=== PATIENT | female | born 1990 | race Hispanic/Latino ===

== ENCOUNTER 2019-04-10 05:51 | Day surgery (SDC) | payer BC ==
--- NOTE | 2019-04-09 12:39 | History and Physical Report ---
History of Present Illness Date of examination: 04/08/19 History of present illness: Patient has been reassessed/reevaluated. H&P has been reviewed. No interval changes. This patient desires to discuss control methods and possibly start, continue, or change control. The patient denies blood clots, smoking, history of stroke, undiagnosed vaginal bleeding, liver disease, 1st degree relative with blood clots/stroke, heart disease, high blood pressure and cancer. The method she is currently using is Paragard IUD. Patient desires sterilization. Discussed with various methods of contraceptives including abstinence, barrier and hormonal. Discussed oral, implantable, dermal, injectable,intravaginal and intrauterine methods. Patient declined temporary contraceptives. Discuss the permanency of sterilization. High risk of regret and 0.5 to 1% risk of failure. Questions answered Patient understands and desires to proceed. Vital Signs: Patient Profile: 28 Years Old Female LMP: 04/04/2019 Height: 65 inches Weight: 201 pounds BMI: 33.44 Menstrual History: LMP (date): 04/04/2019 Past History : 0 Term Births: 0 Premature Births: 0 Living Children: 0 Para: 0 Mult. Births: 0 Prev : 0 Aborta: 0 Elect. Ab: 0 Spont. 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 of genital herpes: no Hx of STD: None Current Allergies (reviewed today): No known allergies Past Medical History: Attention Deficit Disorder Depression Past Surgical History: left shoulder(11/2018) Family History Summary: Other family member - Has Family History of Skin Cancer - Entered On: 02/06/2019 Other family member - Has No Family History of Breast Cancer - Entered On: 02/06/2019 Other family member - Has No Family History of Colon Cancer - Entered On: 02/06/2019 Other family member - Has No Family History of Ovarvian Cancer - Entered On: 02/06/2019 Social History: Marital Status: Children: 0 Occupation: Law Student [employer] Smoking History: Patient has never smoked. Risk Factors: Smoked Tobacco Use: Never smoker Smokeless Tobacco Use: Never Passive smoke exposure: no Drug use: no HIV high-risk behavior: no Caffeine use: 0 drinks per day Alcohol use: yes Type: social Exercise: yes Times per week: 3 Seatbelt use: 100 % Review of Systems General Denies fever, chills, sweats, anorexia, fatigue, weakness, malaise, weight loss and sleep disorder. Denies vaginal discharge, incontinence, dysuria, hematuria, urinary frequency, amenorrhea, menorrhagia, abnormal vaginal bleeding, pelvic pain, genital sores, decreased libido, painful periods, painful sex, urinary urgency, hot flashes, vaginal dryness, vaginal itching and vaginal odor. CV Denies chest pains, palpitations, syncope, dyspnea on exertion, orthopnea, PND and peripheral edema. Resp Denies cough, dyspnea at rest, excessive sputum, hemoptysis, wheezing and pleurisy. GI Denies nausea, vomiting, diarrhea, constipation, change in bowel habits, abdominal pain, melena, hematochezia, jaundice, gas/bloating, indigestion/heartburn, dysphagia and odynophagia. Breast Denies left breast lump, right breast lump, nipple discharge, bloody discharge from nipple, breast pain, abnormal mammogram and breast enlargement. Psych Denies depression, anxiety, irritability and mood swings. Past History Past Medical History: other (SEE HPI) Past Surgical History: Other (SEE HPI) Social history: , full code (SEE HPI) Family history: other (SEE HPI) Medications and Allergies Allergies Allergy/AdvReac Type Severity Reaction Status Date / Time No Known Allergies Allergy Unverified 04/03/19 12:26 Home Medications Medication Instructions Recorded Confirmed Last Taken Type Albuterol INH(or & Nicu Only) inhalation INHALATION PRN 04/03/19 Unknown History Bupropion Xl 450 mg PO DAILY 04/03/19 04/03/19 Unknown History Dextroamphetamine/Amphetamine 600 mg PO DAILY 04/03/19 04/03/19 Unknown History [Dextroamp-Amphetamin 10 mg Tab] Meloxicam 15 mg PO DAILY 04/03/19 04/03/19 Unknown History Active Meds: Active Medications Celecoxib (Celebrex) 200 mg PO PREOP NR Stop: 04/10/19 16:00 Gabapentin (Gabapentin) 300 mg PO PREOP NR Stop: 04/10/19 16:00 Lactated Ringer's (Lactated Ringers) 1,000 mls @ 100 mls/hr IV DIRECT SEGUNDO Midazolam HCl (Versed) 2 mg IV PREOP NR Stop: 04/10/19 23:00 Scopolamine (Transderm-Scop) 1 each TD PREOP NR Stop: 04/10/19 23:00 Review of Systems Constitutional: other (SEE HPI) Exam - Physical Exam Narrative exam: HEENT: normocephalic, no lesions or deformities Skin no significant abnormal lesions or rashes Chest: respiratory effort normal, clear to auscultation CV: regular, normal S1-S2, no murmur, no rub, no gallop Abdomen: normal bowel sounds, soft, nontender, no HSM Neuro: no gross anomalities Extremities: no clubbing, cyanosis, or edema 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 High risk of regret and 0.5 to 1% risk of failure. Discussed the different risk of abdominal versus vaginal approaches. Information given Discussed options of tubal blockage and salpingectomy and it's possible benefit of preventing ovarian cancer and increased risks of bleeding during the procedure. Discuss the risks of the surgery including infection, bleeding possibly heavy enough to require a blood transfusion, possilble damage to bowel, bladder or ureter. Patient understands and desires to proceed with tubal blockage due insurance coverage (2) Attention deficit disorder of adult Current Visit: No Status: Chronic (3) Depression Current Visit: No Status: Chronic Qualifiers: Depression Type: unspecified Qualified Code(s): F32.9 - Major depressive disorder, single episode, unspecified
[2019-04-10] MEDS ORDERED: GABAPENTIN 300 MG CAP PO NR (06:00)
[2019-04-10] MEDS ORDERED: SCOPOLAMINE TRANSDERMAL PATCH 72 HR TD NR (06:00)
[2019-04-10] MEDS ORDERED: CELECOXIB 200 MG CAP PO NR (06:00)
[2019-04-10] MEDS ORDERED: LACTATED RINGERS 1,000 ML IV SCH (06:00)
[2019-04-10] MEDS ORDERED: MIDAZOLAM 2 MG/2 ML INJ IV NR (06:00)
[2019-04-10] MEDS ORDERED: BACTERIOSTATIC SODIUM CHLORIDE 0.9% 30 ML VIAL INFILTRATI ONE (06:38)
[2019-04-10] MEDS ORDERED: BUPIVACAINE/PF (0.5%) 5 MG/1 ML 30 ML VIAL INFILTRATI ONE ×2 (06:49→08:28)
--- NOTE | 2019-04-10 07:24 | Anesthesia Consultation ---
Anesthesia Consult and Med Hx Date of service: 04/10/19 - Airway Anesthetic Teeth Evaluation: Good ROM Head & Neck: Adequate Mental/Hyoid Distance: Adequate Mallampati Class: Class II Intubation Access Assessment: Probably Good - Pre-Operative Health Status ASA Pre-Surgery Classification: ASA2 Proposed Anesthetic Plan: General - Pulmonary Hx Smoking: No Hx Asthma: Yes (EXERCISE INDUCED ONLY) Hx Sleep Apnea: No - Cardiovascular System Hx Hypertension: No - Central Nervous System Hx Back Pain: Yes (IN PAST) Hx Psychiatric Problems: Yes (depression) - Endocrine Hx Hypothyroidism: No - Hematic Hx Anemia: No - Other Systems Hx Alcohol Use: Yes (OCC . WINE OCC. VODKA) Hx Substance Use: No Hx Cancer: No
--- NOTE | 2019-04-10 07:25 | Anesthesia Day of Surgery ---
Anesthesia Day of Surgery - Day of Surgery Patient Examined: Yes Patient H&P Reviewed: Yes Patient is NPO: Yes
[2019-04-10] MEDS ORDERED: HYDROmorphone 1 MG/1 ML INJ IV PRN (07:39)
[2019-04-10] MEDS ORDERED: LIDOCAINE MPF (2%) 20 MG/1 ML VIAL 5 ML ONE (07:41)
[2019-04-10] MEDS ORDERED: dexAMETHasone 20 MG/5 ML VIAL ONE (07:41)
[2019-04-10] MEDS ORDERED: GLYCOPYRROLATE 0.4 MG/2 ML INJ ONE (07:41)
[2019-04-10] MEDS ORDERED: NEOSTIGMINE 10MG/10 ML INJ MDV ONE (07:41)
[2019-04-10] MEDS ORDERED: ROCURONIUM 50 MG/5 ML INJ IV ONE (07:41)
[2019-04-10] MEDS ORDERED: SUCCINYLCHOLINE CHLORIDE 200 MG/10 ML INJ MDV ONE (07:41)
[2019-04-10] MEDS ORDERED: PHENYLEPHRINE/NS 1,000 MCG/10 ML SYRINGE (OR USE) IV ONE (07:41)
[2019-04-10] MEDS ORDERED: ONDANSETRON 4 MG/2 ML INJ ONE (07:41)
[2019-04-10] MEDS ORDERED: PROPOFOL 200 MG/20 ML VIAL IV ONE (07:42)
[2019-04-10] MEDS ORDERED: fentaNYL 100 MCG/2 ML INJ ONE ×2 (07:42→08:47)
[2019-04-10] MEDS ORDERED: SODIUM CHLORIDE 0.9% IRR 1,500 ML BOTTLE IR ONE (08:28)
--- NOTE | 2019-04-10 08:58 | Operative Report ---
Operative Report Operative Report: Pre-operative diagnosis: Patient desires permanent sterilization Post-operative diagnosis: Same plus endometriosis Procedure name(s): Laparoscopic bilateral tubal ligation with Falope-Rings with ablation of endometriosis and removal of IUD Surgeon: Alejandro Hammonds MD Business Development Associate: [] Anesthesia: General endotracheal EBL: Minimal Complications: None Findings: Patient with uterus approximately 8 weeks in size with normal fallopian tubes bilaterally. Patient had area of endometriosis noted posterior bilaterally at the uterosacral ligament. Patient also had adhesion with window the left uterosacral ligament. Specimen(s): None Patient was brought in the operating room. General anesthesia was induced without difficulty. She was placed in dorsal lithotomy position. Prepped and draped in usual sterile manner. Her urinary bladder with was emptied with a red rubber catheter. Speculum placed in her vagina. IUD string were grasped with an Allis clamp and easily removed theough cervical os. Monitoring Divisions uterine manipulator was placed for uterine manipulation. Attention was then switched to the patient's abdomen. An infra-umbilical incision was made with a scalpel. This incision was spread with a hemostat. A 5 mm trocar was placed in this incision while lifting high the abdominal wall. Intra-abdominal presence was verified directly with the laparoscope. The patient was then insufflated to approximately 3 L of CO2 gas. The patient's findings as noted above. An accessory puncture was made suprapubically. The 8 mm trocar was placed through this incision under direct visualization with no evidence of internal organ damage. Each of the fallopian tube were identified by its fimbriated end. A portion approximately 1-2 cm from each cornua was grasped with the Falope ring applicator. Falope-Rings were placed without any difficulty bilaterally. Was a laceration of the left fallopian tube with first attempt placement Falope ring that was cauterized. The Falope ring was in place the distalm of the left tube. There was endometriosis were cauterized with good hemostasis. At this time all instruments were removed. The patient was deinsufflated. The skin incisions were closed subcuticular with 4-0 Vicryl. Marcaine was given subcuticularly for postoperative pain relief. The patient tolerated procedure well. She was awakened in the operating room and accompanied to the recovery room in good condition.
--- NOTE | 2019-04-10 09:01 | Short Stay Summary ---
Short Stay Documentation Date of service: 04/10/19 - History Past Medical History: other (SEE HPI) Past Surgical History: Other (SEE HPI) Social history: , full code (SEE HPI) - Allergies and Medications Current Medications: Allergies No Known Allergies Allergy (Unverified 04/03/19 12:26) Home Medications Medication Instructions Recorded Confirmed Last Taken Type Albuterol INH(or & Nicu Only) 1 puff INHALATION PRN 04/03/19 04/10/19 04/09/19 History Bupropion Xl 450 mg PO DAILY 04/03/19 04/03/19 04/09/19 History Dextroamphetamine/Amphetamine 600 mg PO DAILY 04/03/19 04/03/19 04/09/19 History [Dextroamp-Amphetamin 10 mg Tab] Meloxicam 15 mg PO DAILY 04/03/19 04/03/19 04/09/19 History oxyCODONE /ACETAMINOPHEN [Percocet 1 - 2 tab PO Q4H PRN #20 tablet 04/10/19 Unknown Rx 5/325 mg] Active Medications Celecoxib (Celebrex) 200 mg PO PREOP NR Stop: 04/10/19 16:00 Last Admin: 04/10/19 06:48 Dose: 200 mg Documented by: Gabapentin (Gabapentin) 300 mg PO PREOP NR Stop: 04/10/19 16:00 Last Admin: 04/10/19 06:48 Dose: 300 mg Documented by: Hydromorphone HCl (Dilaudid) 0.5 mg IV Q10MIN PRN PRN Reason: Pain , Severe (7-10) Stop: 04/10/19 23:00 Lactated Ringer's (Lactated Ringers) 1,000 mls @ 100 mls/hr IV DIRECT SEGUNDO Last Admin: 04/10/19 07:00 Dose: 100 mls/hr Documented by: Midazolam HCl (Versed) 2 mg IV PREOP NR Stop: 04/10/19 23:00 Last Admin: 04/10/19 07:20 Dose: 2 mg Documented by: Scopolamine (Transderm-Scop) 1 each TD PREOP NR Stop: 04/10/19 23:00 Last Admin: 04/10/19 06:48 Dose: 1 each Documented by: - Brief post op/procedure progress note Date of procedure: 04/10/19 (see dictated operative note) - Hospital course Hospital course: Patient was admitted underwent the above him procedure without any complications. Patient will be discharged with follow-up in office in 1-2 weeks for postop check. - Disposition Condition at discharge: Good Disposition: DC-01 TO HOME OR SELFCARE - Discharge Diagnoses (1) Encounter for sterilization Status: Acute (2) Attention deficit disorder of adult Status: Chronic (3) Depression Status: Chronic Qualifiers: Depression Type: unspecified Qualified Code(s): F32.9 - Major depressive disorder, single episode, unspecified (4) Endometriosis Status: Chronic Short Stay Discharge Plan Activity: advance as tolerated Diet: regular Wound: open to air Follow up with: PRIMARY CARE, [Primary Care Provider] - 7 Days Prescriptions: oxyCODONE /ACETAMINOPHEN [Percocet 5/325 mg] 1 - 2 tab PO Q4H PRN #20 tablet PRN Reason: Pain, Moderate
[2019-04-10] MEDS ORDERED: oxyCODONE /ACETAMINOPHEN 5-325MG TAB PO PRN (09:06)
[2019-04-10] MEDS ORDERED: oxyCODONE /ACETAMINOPHEN 5-325MG TAB ONE (09:11)
[2019-04-10] MEDS ORDERED: KETOROLAC 30 MG/1 ML INJ ONE (09:32)
[2019-04-10] MEDS ORDERED: KETOROLAC 30 MG/1 ML INJ IV PRN (09:35)
[2019-04-10 10:10] VITALS: BP 110/69
--- NOTE | 2019-04-10 13:51 | Post Anesthesia Evaluation ---
- Post Anesthesia Evaluation Patient Participated: Yes Airway Patent: Yes Stable Respiratory Function: Yes Nausea/Vomiting: No Temp > 96.8F: Yes Pain Manageable: Yes Adequeate Hydration: Yes Anesthesia Complications: No
== END 2019-04-10 05:52 | disposition home or self-care (01) ==
LOC: OR 05:51
PROVIDERS: ATTEND Obstetrics & Gynecology
DX: Z30.2 Encounter for sterilization (principal); Z30.432 Encounter for removal of intrauterine contraceptive device; F32.9 Major depressive disorder, single episode, unspecified; N80.9 Endometriosis, unspecified; G43.909 Migraine, unspecified, not intractable, without status migrainosus; J45.909 Unspecified asthma, uncomplicated; Z72.89 Other problems related to lifestyle; Z98.890 Other specified postprocedural states; Z79.899 Other long term (current) drug therapy
CPT/HCPCS: 58301; 58662; 58671; 81025; J0330; J1100; J1170; J1885; J2250; J2370; J2405; J2704; J2710; J3010; J7120